=== PATIENT | female | born 1975 | race Caucasian/White ===

== ENCOUNTER 2016-12-27 06:30 | Inpatient (IN) | payer BC ==
[2016-12-21 10:38] LABS: ASCORBIC ACID (UR NOT ORDER) NEG (NEG); BILIRUBIN, URINE NEGATIVE (NEG); KETONE, URINE TRACE MG/DL (NEG); LEUKOCYTE ESTERASE(NOT OR SMALL (NEG); WBC (NOT ORDERED) (RFLEX) 4 (0-5)
[2016-12-21 12:06] LABS: BASOPHILS 0.4 %; BASOPHILS ABSOLUTE 0.04 10/3/uL (0.0-0.16); EOSINOPHILS 5.9 %; EOSINOPHILS ABSOLUTE 0.55 10/3/uL (0.0-0.53); HEMATOCRIT 42.5 % (36.0-48.0); HEMOGLOBIN 14.6 g/dL (12.0-16.0); IMMATURE GRANULOCYTES 0.1 %; IMMATURE GRANULOCYTES ABSOLUTE 0.01 10/3/uL (0.0-0.11); LYMPHOCYTES 32.3 %; MEAN CORPUS HGB CONC 34.4 g/dL (32.0-36.0); MEAN CORPUSCULAR VOLUME 87.3 fL (80-100); MEAN PLATELET VOLUME 9.6 fL (9.2-13.0); MONOCYTES 4.7 %; MONOCYTES ABSOLUTE 0.44 10/3/uL (0.21-1.20); NEUTROPHILS 56.6 %; NEUTROPHILS ABSOLUTE 5.25 10/3/uL (2.02-8.40); PLATELET COUNT 459 10/3/uL (150-400); RBC DISTRIBUTION WIDTH 13.8 % (12.0-16.0); RED CELL COUNT 4.87 10/6/uL (4.0-5.6); WHITE BLOOD CELLS 9.3 10/3/uL (4.5-10.5)
[2016-12-21 12:08] LABS: MANUAL DIFF NO %
[2016-12-21 12:13] LABS: INTERNATIONAL NORMAL RATI 1.1 UNITS (-); PARTIAL THROMBO TIME 30.5 SEC (22.5-37.2); PROTIME (NOT ORD) 13.7 SEC (12.0-14.5)
[2016-12-21 13:53] LABS: A/G RATIO 0.9 (0.7-1.9); ALBUMIN 3.8 G/DL (3.5-5.0); ALKALINE PHOSPHATASE 104 U/L (45-117); BUN (BLOOD UREA NITROGEN) 13 MG/DL (6-23); CALCIUM, SERUM 8.8 MG/DL (8.5-10.4); CHLORIDE, SERUM 104 MMOL/L (96-112); CHOL/HDL RATIO(NOT ORDER) 4.5 (0-5); CHOLESTEROL 157 MG/DL (< 200); CO2 (CARBON DIOXIDE) 25 MMOL/L (24-34); CREATININE 0.99 MG/DL (0.55-1.02); GFR AFRICAN AMERICAN 83 ML/MIN (>=60); GFR NON AFRICAN AMERICAN 72 ML/MIN (>=60); GLOBULIN 4.2 G/DL (2.5-4.1); GLUCOSE, SERUM 74 MG/DL (60-99); HDL CHOLESTEROL 35 MG/DL (> 49); IRON, SERUM 67 MCG/DL (35-150); LDL CHOLESTEROL 86 MG/DL (< 130); NON-HDL CHOLESTEROL 122 MG/DL (< 160); POTASSIUM, SERUM 4.6 MMOL/L (3.5-5.3); SGOT(AST) 26 U/L (5-40); SGPT(ALT) 36 U/L (5-65); SODIUM, SERUM 140 MMOL/L (135-148); TOTAL BILIRUBIN 0.3 MG/DL (0-1.2); TRIGLYCERIDE 180 MG/DL (< 150)
[2016-12-21 14:32] LABS: FOLATE 20.9 NG/ML (>5.2)
--- NOTE | ~2016-12-27 | OP ---
Record Of Operation [facility] [address] [place]. [address] NAME: GUILHERME MONTOYA : 79 STATUS : ADM IN PAT#: [id number] AGE: 41 ADM/REG DATE : 12/27/16 MR#: [id number] REPORT SERV DATE: 12/27/16 DICTATED BY: MARCELINO CAMERON DATE: 12/27/16 REPORT STATUS : Draft TRANSCRIBED BY: MODPenelope DATE: 12/27/16 DATE OF PROCEDURE: PREOPERATIVE DIAGNOSIS: Morbid obesity. POSTOPERATIVE DIAGNOSIS: Morbid obesity. OPERATION: Laparoscopic sleeve gastrectomy. SURGEON: Marcelino Cameron M.D. ANESTHESIA: General endotracheal. COMPLICATIONS: None. INDICATION OF THE OPERATION: This is a 41-year-old white female with morbid obesity with a BMI of 50.9 and a weight of 296.8 pounds, and associated polycystic ovarian syndrome, and insulin resistance. DESCRIPTION OF OPERATION: The patient was taken to the operative room. After adequate general endotracheal anesthesia, was prepped and draped in a sterile manner. We put a total of five trocars in the upper abdomen and carefully we the left lobe of the liver. Identified the upper stomach anatomy. We did remove some of the epiphrenic fat pad on top of the stomach using the Harmonic Scalpel, and then we entered the lesser sac at the level of the lower body of the stomach next to the greater curvature, and started dissecting the greater curvature with the Harmonic Scalpel all the way up to the fundus, and mobilized the fundus all the way up to the left ronda. The left ronda was completely dissected posteriorly, and all the posterior attachments were taken down with the Harmonic Scalpel to make sure that the stomach was completely free posteriorly, and then continued dissection to the greater curvature all the way down to the distal antrum to about 2 to 3 cm from the pylorus, and then at that point, we introduced a 36-Faroese blunt-tip bougie suction catheter all the way down to the distal antrum, put it on suction to delineate well the stomach, and then started stapling about 5 cm from the pylorus using the echelon automatic stapler with a green load, and staple reinforcement using the SeamGuard. We started stapling from the bottom to the top. We used a total of five staplings. Staple line looked intact. There was no evidence of bleeding or oozing. Then, we tacked the greater omentum into the staple line at the top, middle, and lower portion to stabilize the orientation of the sleeve pouch. We used a Vicryl 2-0 interrupted suture to do that, then we removed the bougie, and we put it in and out to verify there was no evidence of obstruction, and then proceeded to remove the stomach specimen through the 15 mm trocar site after we stretched it with a Janiya and then closed that fascial defect within an EFx fascial closure device using a Vicryl #0, then removed all the trocars and liver retractor under direct visualization and closed all the incisions with subcuticular Monocryl 4-0. The patient tolerated the procedure well and did not have any problems. Record Of Operation [facility] [address] [facility] [place]. [address] NAME: GUILHERME MONTOYA : 79 STATUS : ADM IN [facility]#: [id number] AGE: 41 ADM/REG DATE : 12/27/16 MR#: [id number] REPORT SERV DATE: 12/27/16 DICTATED BY: MARCELINO CAMERON DATE: 12/27/16 REPORT STATUS : Draft TRANSCRIBED BY: HIEU DATE: 12/27/16 MALIKA/HIEU Marcelino Porter M.D. / [id number] CC: Marcelino Cameron M.D.
[~2016-12-27 06:30] MED LIST: AYGESTIN5 MG PO; BUSPAR15 M1 PO; FORTAMET1000 MG PO; PRISTIQ50 MG PO; TOPXL100 PO; X5 PO; ZOVI200CAP PO
[2016-12-28] MEDS ORDERED: SUCR (15:44)
== END 2016-12-28 16:33 | disposition home or self-care (01) | DRG 621 ==
LOC: SDC/OF 06:30 → PACU 09:58 → 2SO 12:13
PROVIDERS: Family Medicine; Surgery
PROC: 0DB64Z3 Excision of Stomach, Percutaneous Endoscopic Approach, Vertical (ICD-10-PCS; principal; 2016-12-27 07:45)
DX: E66.01 Morbid (severe) obesity due to excess calories (principal); E11.9 Type 2 diabetes mellitus without complications; Z68.43 Body mass index [BMI] 50.0-59.9, adult
CPT/HCPCS: 74246; 80053; 80061; 81001; 82607; 82746; 82962; 83036; 83540; 84443; 84703; 85025; 85610; 85730; 87086; 88307; 93005; A9270-GY; C9113; J0690; J1170; J1885; J2250; J2370; J2405; J2795; J3010